=== PATIENT | female | born 1975 | race Caucasian/White ===

== ENCOUNTER → 2020-02-05 | Outpatient (CLI) | payer MEDICARE, BC ==
[~2020-02-05] MED LIST: CALC400T6 PO; CHOL10003 PO; CYAN1TAB29 PO; TRAM50TA2 PO; vitamin b-1 PO; vraylar PO
[2020-02-05 14:22] LABS: BASOPHILS # (AUTO) 0.05 x10^3/uL (0-0.1); BASOPHILS % (AUTO) 1 % (0-1); EOSINOPHILS # (AUTO) 0.14 x10^3/uL (0-0.4); EOSINOPHILS % (AUTO) 3 % (1-7); LYMPHOCYTES % (AUTO) 21 % (22-44); MD NO; MEAN CORPUSCULAR HEMOGLOBIN 31.1 pg (27.0-34.8); MEAN CORPUSCULAR HGB CONC 33.4 g/dL (32.4-35.8); MEAN CORPUSCULAR VOLUME 93.2 fL (80-100); MEAN PLATELET VOLUME 9.1 fL (7.4-10.4); MONOCYTES # (AUTO) 0.37 x10^3/uL (0.2-0.8); MONOCYTES % (AUTO) 6 % (2-9); NEUTROPHILS % (AUTO) 70 % (42-75); PLATELET COUNT 347 x10^3/uL (130-400); RED CELL DISTRIBUTION WIDTH 13.4 % (9.6-15.2)
[2020-02-05 14:30] LABS: ANION GAP 6 mmol/L (5-15); CHLORIDE 107 mmol/L (98-107); CREATININE 0.68 mg/dL (0.55-1.02)
[2020-02-05 14:40] LABS: CALCIUM 8.7 mg/dL (8.5-10.1)
[2020-02-05 14:58] LABS: INTERNATIONAL NORMALIZED RATIO 1.02 (0.93-1.1); PROTHROMBIN TIME 10.8 Seconds (9.6-11.5)
== END | disposition home or self-care (01) ==
LOC: STAR 12:56
PROVIDERS: ATTEND Orthopaedic Surgery
DX: Z01.818 Encounter for other preprocedural examination (principal); M17.11 Unilateral primary osteoarthritis, right knee; Z79.899 Other long term (current) drug therapy
CPT/HCPCS: 36415; 80048; 83036; 85025; 85610; 85730; 87081; 87147

== ENCOUNTER 2020-02-13 05:36 | Observation (INO) | payer MEDICARE, BC ==
[~2020-02-13] VITALS: Ht 171.4 cm; Wt 117.5 kg
[2020-02-13] MEDS ORDERED: ACETAMINOPHEN 500 MG TABLET PO ONE (06:00)
[2020-02-13] MEDS ORDERED: GABAPENTIN 300 MG CAPSULE PO ONE (06:00)
[2020-02-13] MEDS ORDERED: LACTATED RINGERS 1,000 ML IV SCH (06:01)
[2020-02-13] MEDS ORDERED: KETOROLAC 60 MG/2 ML ONE (06:04)
[2020-02-13] MEDS ORDERED: EPINEPHRINE 1 MG/ML, 1ML ONE (06:05)
[2020-02-13] MEDS ORDERED: SODIUM CHLORIDE 0.9% 50 ML ONE (06:05)
[2020-02-13] MEDS ORDERED: VANCOMYCIN 1,000 MG ONE (06:05)
[2020-02-13] MEDS ORDERED: TRANEXAMIC ACID 100 MG/ML, 10ML ONE ×3 (06:05→08:08)
[2020-02-13] MEDS ORDERED: ROPIvacaine/PF 0.5%, 30 ML ONE (06:06)
[2020-02-13] MEDS ORDERED: ROPIvacaine/PF 0.5%, 20 ML ONE (06:06)
[2020-02-13 06:08] VITALS: BP 139/81
[2020-02-13] MEDS ORDERED: FENTANYL PF 250 MCG/5ML ONE ×2 (06:09→07:03)
[2020-02-13] MEDS ORDERED: MIDAZOLAM 1 MG/ML, 2ML ONE (06:09)
[2020-02-13] MEDS ORDERED: ONDANSETRON 2MG/ML, 2ML ONE (06:14)
[2020-02-13] MEDS ORDERED: PROPOFOL 10 MG/ML, 20ML ONE (06:14)
[2020-02-13] MEDS ORDERED: DEXAMETHASONE 4 MG/ML, 1ML ONE (06:14)
[2020-02-13] MEDS ORDERED: PHENYLEPHRINE 10 MG/ML ONE (06:14)
[2020-02-13] MEDS ORDERED: NEOSTIGMINE 1 MG/ML, 10ML ONE (06:14)
[2020-02-13] MEDS ORDERED: CEFAZOLIN 1,000 MG ONE ×2 (06:14→06:58)
[2020-02-13] MEDS ORDERED: ROCURONIUM 10MG/ML,5ML ONE (06:14)
[2020-02-13] MEDS ORDERED: GLYCOPYRROLATE 0.2MG/1ML, 5ML ONE (06:14)
[2020-02-13] MEDS ORDERED: ROPIvacaine/PF 0.2%, 20 ML ONE (06:15)
[2020-02-13] MEDS ORDERED: CHLORHEXIDINE 15 ML UDC MM ONE (06:30)
[2020-02-13] MEDS ORDERED: OXYcodone 5 MG/5 ML ORAL.SOL UDC PO PRN (06:30)
[2020-02-13] MEDS ORDERED: SENNA/DOCUSATE TABLET PO PRN (06:30)
[2020-02-13] MEDS ORDERED: DIPHENHYDRAMINE 25 MG CAPSULE PO PRN (06:30)
[2020-02-13] MEDS ORDERED: HYDROcodone/APAP 5/325 TABLET PO PRN (06:30)
[2020-02-13] MEDS ORDERED: PROMETHAZINE 25 MG/ML, 1ML IVPush PRN (06:30)
[2020-02-13] MEDS ORDERED: LABETALOL 5MG/ML, 20ML IV PRN (06:30)
[2020-02-13] MEDS ORDERED: morphine SULFATE 10 MG/ML, 1ML IVPush PRN (06:30)
[2020-02-13] MEDS ORDERED: BISACODYL 10 MG SUPP PR PRN (06:30)
[2020-02-13] MEDS ORDERED: ONDANSETRON 4 MG TABLET PO PRN (06:30)
[2020-02-13] MEDS ORDERED: ONDANSETRON 2MG/ML, 2ML IV PRN (06:30)
[2020-02-13] MEDS ORDERED: HALOPERIDOL 5 MG/ML IV PRN (06:30)
[2020-02-13] MEDS ORDERED: HYDROmorphone 1 MG/ML, 1ML INJ IV PRN (06:30)
[2020-02-13] MEDS ORDERED: MEPERIDINE/PF 25MG/0.5ML IVPush PRN (06:30)
[2020-02-13] MEDS ORDERED: MAGNESIUM HYDROXIDE 8%, 30ML UDC PO PRN (06:30)
[2020-02-13] MEDS ORDERED: hydrALAzine 20 MG/ML, 1ML IV PRN (06:30)
[2020-02-13] MEDS ORDERED: OXYcodone 5 MG/5 ML ORAL.SOL UDC ONE (08:06)
[2020-02-13] MEDS ORDERED: FENTANYL PF 100 MCG/2ML ONE (08:06)
[2020-02-13] MEDS: FENTANYL PF 100 MCG/2ML IV PRN ×2 (08:15→08:30)
[2020-02-13] MEDS ORDERED: HYDROmorphone 1 MG/ML, 1ML INJ ONE (08:31)
[2020-02-13] MEDS: HYDROmorphone 1 MG/ML, 1ML INJ IVPush PRN ×2 (08:40→08:50)
[2020-02-13] MEDS: DOCUSATE 100 MG CAPSULE PO SCH ×2 (11:58→20:30)
[2020-02-13] MEDS: NS + 20MEQ KCL 1,000 ML IV SCH (11:58)
[2020-02-13] MEDS: OXYcodone IR 5MG TABLET PO PRN ×3 (11:58→20:30)
[2020-02-13 12:36] VITALS: BP 129/85
[2020-02-13] MEDS: CEFAZOLIN PMX 2GM/50ML 50 ML IVPB SCH ×2 (13:58→23:08)
[2020-02-13] MEDS: ASPIRIN 81 MG TABLET EC PO SCH (17:24)
[2020-02-13 18:58] VITALS: BP 134/84
[2020-02-13] MEDS: ACETAMINOPHEN 325 MG TABLET PO PRN (20:30)
[2020-02-13] MEDS ORDERED: ZOLPIDEM 5MG TABLET PO PRN (21:00)
[2020-02-14] MEDS: NS + 20MEQ KCL 1,000 ML IV SCH
[2020-02-14 00:31] VITALS: BP 124/68
[2020-02-14] MEDS: OXYcodone IR 5MG TABLET PO PRN ×3 (00:38→10:05)
[2020-02-14] MEDS: ACETAMINOPHEN 325 MG TABLET PO PRN ×2 (00:38→05:42)
[2020-02-14 04:07] VITALS: BP 124/79
[2020-02-14] MEDS: ASPIRIN 81 MG TABLET EC PO SCH (05:42)
[2020-02-14] MEDS ORDERED: DEXAMETHASONE 4 MG/ML, 1ML IVPush SCH (06:00)
[2020-02-14 07:30] VITALS: BP 165/94
[2020-02-14] MEDS: DOCUSATE 100 MG CAPSULE PO SCH (10:05)
[2020-02-14] MEDS ORDERED: OXYC5CAP2 PO (10:45)
[2020-02-14] MEDS ORDERED: TRAM50TA2 PO (10:45)
== END 2020-02-14 11:04 | disposition home or self-care (01) ==
LOC: OUT 05:36 → 4NE 09:36 → OUT 23:58 → 4NE 23:58
PROVIDERS: ADMIT Orthopaedic Surgery; ATTEND Orthopaedic Surgery
DX: Z03.818 Encounter for observation for suspected exposure to other biological agents ruled out (principal); M17.11 Unilateral primary osteoarthritis, right knee; K21.9 Gastro-esophageal reflux disease without esophagitis; M81.0 Age-related osteoporosis without current pathological fracture; G47.30 Sleep apnea, unspecified; Z87.891 Personal history of nicotine dependence; Z98.84 Bariatric surgery status; Z79.899 Other long term (current) drug therapy
CPT/HCPCS: 27447; 36415; 85014; 85018; 87635; 96365; 96366; 96375; 97110; 97161; C1713; C1776; G0378; J0171; J0690; J1100; J1170; J1885; J2250; J2370; J2405; J2704; J2710; J2795; J3010; J3370; J3480; J7120

== ENCOUNTER → 2020-05-23 | Outpatient (CLI) | payer MEDICARE, BC ==
[~2020-05-23] MED LIST changes: +LORA-445 PO; +MULT-516 PO; +OXYC5CAP2 PO
[2020-05-23 11:17] LABS: BASOPHILS % (AUTO) 1 % (0-1); EOSINOPHILS % (AUTO) 2 % (1-7); LYMPHOCYTES % (AUTO) 27 % (22-44); MEAN CORPUSCULAR HGB CONC 33.1 g/dL (32.4-35.8); MONOCYTES % (AUTO) 8 % (2-9); NEUTROPHILS % (AUTO) 63 % (42-75); PLATELET COUNT 346 x10^3/uL (130-400); RED BLOOD COUNT 4.64 x10^6/uL (3.82-5.3); RED CELL DISTRIBUTION WIDTH 14.5 % (9.6-15.2)
[2020-05-23 11:22] LABS: ANION GAP 3 mmol/L (5-15); CALCIUM 8.7 mg/dL (8.5-10.1); CHLORIDE 109 mmol/L (98-107); CREATININE 0.76 mg/dL (0.55-1.02); INTERNATIONAL NORMALIZED RATIO 1.05 (0.93-1.1); PROTHROMBIN TIME 10.8 Seconds (9.6-11.5)
[2020-05-23 11:58] LABS: MD NO
== END | disposition home or self-care (01) ==
LOC: STAR 10:13
PROVIDERS: ATTEND Orthopaedic Surgery
DX: Z01.812 Encounter for preprocedural laboratory examination (principal); M17.12 Unilateral primary osteoarthritis, left knee; M25.562 Pain in left knee; Z20.828 Contact with and (suspected) exposure to other viral communicable diseases
CPT/HCPCS: 36415; 80048; 83036; 85025; 85610; 85730; 87081; 87147; 87635

== ENCOUNTER 2020-05-28 05:39 | Observation (INO) | payer MEDICARE, BC ==
[~2020-05-28] VITALS: Ht 170.2 cm; Wt 115.0 kg
[2020-05-28] MEDS ORDERED: GABAPENTIN 300 MG CAPSULE PO STA (06:11)
[2020-05-28] MEDS ORDERED: LIDOCAINE-MPF 1%, 2ML INFIL STA (06:11)
[2020-05-28] MEDS ORDERED: LACTATED RINGERS 1,000 ML IV SCH (06:11)
[2020-05-28] MEDS ORDERED: ACETAMINOPHEN 500 MG TABLET PO STA (06:11)
[2020-05-28] MEDS ORDERED: CHLORHEXIDINE 15 ML UDC MM STA (06:11)
[2020-05-28] MEDS ORDERED: KETOROLAC 60 MG/2 ML ONE (06:14)
[2020-05-28] MEDS ORDERED: TRANEXAMIC ACID 100 MG/ML, 10ML ONE ×2 (06:14)
[2020-05-28] MEDS ORDERED: EPINEPHRINE 1 MG/ML, 1ML ONE (06:15)
[2020-05-28] MEDS ORDERED: ROPIvacaine/PF 0.5%, 20 ML ONE (06:15)
[2020-05-28] MEDS ORDERED: SODIUM CHLORIDE 0.9% 50 ML ONE (06:15)
[2020-05-28] MEDS ORDERED: ROPIvacaine/PF 0.5%, 30 ML ONE (06:15)
[2020-05-28] MEDS ORDERED: VANCOMYCIN 1,000 MG ONE (06:15)
[2020-05-28] MEDS ORDERED: ONDANSETRON 4 MG TABLET PO PRN (06:30)
[2020-05-28] MEDS ORDERED: HYDROcodone/APAP 5/325 TABLET PO PRN (06:30)
[2020-05-28] MEDS ORDERED: HYDROmorphone 1 MG/ML, 1ML INJ IV PRN (06:30)
[2020-05-28] MEDS ORDERED: MAGNESIUM HYDROXIDE 8%, 30ML UDC PO PRN (06:30)
[2020-05-28] MEDS ORDERED: ACETAMINOPHEN 650 MG/20.3 ML UDC PO PRN (06:30)
[2020-05-28] MEDS ORDERED: ONDANSETRON 2MG/ML, 2ML IV PRN (06:30)
[2020-05-28] MEDS ORDERED: SENNA/DOCUSATE TABLET PO PRN (06:30)
[2020-05-28] MEDS ORDERED: ZOLPIDEM 5MG TABLET PO PRN (06:30)
[2020-05-28] MEDS ORDERED: BISACODYL 10 MG SUPP PR PRN (06:30)
[2020-05-28] MEDS ORDERED: DIPHENHYDRAMINE 50 MG CAPSULE PO PRN (06:30)
[2020-05-28] MEDS ORDERED: LORazepam 0.5MG TABLET PO SCH (06:30)
[2020-05-28] MEDS ORDERED: FENTANYL PF 250 MCG/5ML ONE (06:31)
[2020-05-28] MEDS ORDERED: MIDAZOLAM 1 MG/ML, 2ML ONE (06:31)
[2020-05-28] MEDS ORDERED: PROPOFOL 10 MG/ML, 20ML ONE (06:55)
[2020-05-28] MEDS ORDERED: CEFAZOLIN 1,000 MG ONE (06:55)
[2020-05-28] MEDS ORDERED: ONDANSETRON 2MG/ML, 2ML ONE (06:55)
[2020-05-28] MEDS ORDERED: DEXAMETHASONE 4 MG/ML, 1ML ONE (06:55)
[2020-05-28] MEDS ORDERED: MEPERIDINE/PF 25MG/0.5ML IVPush PRN (07:30)
[2020-05-28] MEDS ORDERED: ONDANSETRON 2MG/ML, 2ML IVPush PRN (07:30)
[2020-05-28] MEDS ORDERED: OXYcodone 5 MG/5 ML ORAL.SOL UDC PO PRN (07:30)
[2020-05-28] MEDS ORDERED: FENTANYL PF 100 MCG/2ML ONE ×3 (07:56→08:25)
[2020-05-28] MEDS ORDERED: OXYcodone 5 MG/5 ML ORAL.SOL UDC ONE (08:25)
[2020-05-28] MEDS: FENTANYL PF 100 MCG/2ML IV PRN ×3 (08:28→08:42)
[2020-05-28] MEDS ORDERED: HYDROmorphone 1 MG/ML, 1ML INJ ONE (08:43)
[2020-05-28] MEDS ORDERED: MEPERIDINE/PF 25MG/ML,1ML ONE (08:43)
[2020-05-28] MEDS: NS + 20MEQ KCL 1,000 ML IV SCH ×2 (10:12→22:08)
[2020-05-28] MEDS: DOCUSATE 100 MG CAPSULE PO SCH ×2 (10:12→20:27)
[2020-05-28 13:14] VITALS: BP 138/87
[2020-05-28] MEDS: OXYcodone IR 5MG TABLET PO PRN ×3 (15:19→20:28)
[2020-05-28] MEDS: CEFAZOLIN PMX 2GM/50ML 50 ML IVPB SCH (15:19)
[2020-05-28] MEDS: ASPIRIN 81 MG TABLET EC PO SCH (18:01)
[2020-05-28 20:00] VITALS: BP 123/79
[2020-05-29] MEDS: CEFAZOLIN PMX 2GM/50ML 50 ML IVPB SCH (00:12)
[2020-05-29] MEDS: OXYcodone IR 5MG TABLET PO PRN ×3 (00:18→07:45)
[2020-05-29 01:52] VITALS: BP 121/87
[2020-05-29] MEDS: ASPIRIN 81 MG TABLET EC PO SCH (05:33)
[2020-05-29 05:57] VITALS: BP 137/86
[2020-05-29] MEDS ORDERED: DEXAMETHASONE 4 MG/ML, 1ML IVPush SCH (06:00)
[2020-05-29 07:50] VITALS: BP 140/87
[2020-05-29] MEDS: DOCUSATE 100 MG CAPSULE PO SCH (08:26)
== END 2020-05-29 09:55 | disposition home or self-care (01) ==
LOC: OUT 05:39 → 4NE 09:33 → OUT 20:37 → DCLOUNGE 05-29 09:51
PROVIDERS: ADMIT Orthopaedic Surgery; ATTEND Orthopaedic Surgery
DX: M17.12 Unilateral primary osteoarthritis, left knee (principal); M81.0 Age-related osteoporosis without current pathological fracture; K21.9 Gastro-esophageal reflux disease without esophagitis; G47.30 Sleep apnea, unspecified; Z87.891 Personal history of nicotine dependence; Z91.040 Latex allergy status; Z79.899 Other long term (current) drug therapy; Z96.652 Presence of left artificial knee joint
CPT/HCPCS: 27447; 36415; 85014; 85018; 96361; 96365; 96366; 96375; 97110; 97161; C1713; C1776; G0378; J0171; J0690; J1100; J1885; J2175; J2250; J2405; J2704; J2795; J3010; J3370; J3480; J7120